=== PATIENT | female | born 1985 | race Caucasian/White ===

== ENCOUNTER 2019-03-27 19:05 | Emergency (ER) | payer SELFPAY ==
[2019-03-27 19:29] VITALS: TEMP 98; BMI 30.6
--- NOTE | 2019-03-27 19:58 | PDOC ---
History of Present Illness - General Chief Complaint: Nausea/Vomiting Stated Complaint: NAUSEA/VOMITING Time Seen by Provider: 03/27/19 19:49 - History of Present Illness Initial Comments: 03/27/19 19:55 33 YEAR OLD FEMALE C/O NAUSEA AND VOMITING SINCE 3 PM C/O ruq PAIN RADIATING TO THE BACK. patient started on cipro for cystitis today. patient reports feeling weak and dizziness LMP: 03/09/2019 pmhx: S/P h-pYLORI TREATMENT 2 MONTHS AGO 03/27/19 20:02 03/27/19 20:04 Past History - Past Medical History Allergies/Adverse Reactions: Allergies Allergy/AdvReac Type Severity Reaction Status Date / Time No Known Allergies Allergy Verified 03/27/19 19:24 Home Medications: Ambulatory Orders Omeprazole [Prilosec (RX)] 40 mg PO DAILY #30 capsule 07/30/14 Sucralfate [Carafate -] 1 gm PO TID PRN #21 tablet 07/30/14 COPD: Yes GI Disorders: Yes (gastritis) - Suicide/Smoking/Psychosocial Hx Smoking History: Never smoked Have you smoked in the past 12 months: No Hx Alcohol Use: No Drug/Substance Use Hx: No Substance Use Type: None Review of Systems - Review of Systems Able to Perform ROS?: Yes Is the patient limited Czech proficient: No Constitutional: No: Symptoms Reported, See HPI, Chills, Diaphoresis, Fever, Loss of Appetite, Malaise, Night Sweats, Weakness, Weight Stable, Unintentional Wgt. Loss, Unexplained wgt Loss, Other ABD/GI: Yes: Nausea, Vomiting, Abdominal cramping Musculoskeletal: Yes: Back Pain Integumentary: No: Symptoms Reported, See HPI, Bruising, Change in Color, Change in Hair/Nails, Dryness, Erythema, Flushing, Lesions, Lumps, Pallor, Pruritus, Rash, Sweating, Other Neurological: No: Symptoms reported, See HPI, Headache, Numbness, Paresthesia, Pre-Existing Deficit, Seizure, Tingling, Tremors, Weakness, Unsteady Gait, Ataxia, Dizziness, Other *Physical Exam - Vital Signs Last Vital Signs Temp Pulse Resp BP Pulse Ox 98.0 F 90 16 126/76 97 03/27/19 19:24 03/27/19 19:24 03/27/19 19:24 03/27/19 19:24 03/27/19 19:24 - Physical Exam General Appearance: Yes: Appropriately Dressed Cardiovascular: positive: Regular Rhythm, Regular Rate Gastrointestinal/Abdominal: positive: Normal Bowel Sounds, Tender (RUQ) Musculoskeletal: positive: CVA Tenderness (R) Extremity: positive: Normal Capillary Refill, Normal Inspection, Normal Range of Motion Integumentary: positive: Normal Color, Dry, Warm Neurologic: positive: Fully Oriented, Alert ED Treatment Course - LABORATORY CBC & Chemistry Diagram: 03/27/19 20:15 03/27/19 20:15 Progress Note - Progress Note Progress Note: A: cholelithiaisis P: Abdominal U/S labs IVF antiemetics Medical Decision Making - Medical Decision Making 03/27/19 21:21 Abdominal US: The liver has a normal size, shape and echotexture, without sonographically detected focal abnormality. There is no intrahepatic blue ductal dilatation. There is normal antegrade portal venous flow. There are multiple gallstones within the gallbladder. The gallbladder is otherwise within normal limits. The common bile duct measures 0.4 cm in diameter. There is no evidence of ascites. The right kidney measures 11.2 x 6.1 x 6.0 cm in diameter and has an unremarkable sonographic appearance, without sonographically detected focal abnormality. There is no right-sided hydronephrosis or renal calculi. *DC/Admit/Observation/Transfer Diagnosis at time of Disposition: Right upper quadrant pain Cholelithiasis Qualifiers: Cholelithiasis location: gallbladder Cholecystitis presence: without cholecystitis Biliary obstruction: without biliary obstruction Qualified Code(s) : K80.20 - Calculus of gallbladder without cholecystitis without obstruction - Discharge Dispostion Disposition: HOME - Referrals Referrals: Ayah Mahajan FNP [Primary Care Provider] - - Patient Instructions Printed Discharge Instructions: Gallstones Additional Instructions: Drink plenty of fluids Avoid fatty foods. Follow-up with a bill poster installer as soon as possible. You may continue Cipro as prescribed by your doctor for your urinary tract infection. Return to the emergency room if you develop fever, worsening nausea vomiting, severe abdominal pain or any worsening symptoms. - Post Discharge Activity Forms/Work/School Notes: Back to Work
[2019-03-27] MEDS ORDERED: ONDANSETRON 4 MG/2 ML VIAL IVPUSH ONE (20:03)
[2019-03-27] MEDS ORDERED: SODIUM CHLORIDE 1,000 ML IV STA (20:03)
[2019-03-27] MEDS ORDERED: ACETAMINOPHEN 1000 MG/100 ML VIAL (NON FORMULARY) IVPB ONE (20:04)
[2019-03-27 20:18] LABS: BASO % 0.3 % (0-2.0); HEMATOCRIT 41.1 % (32.4-45.2); HEMOGLOBIN 13.4 GM/dL (10.7-15.3); LYMPH % 9.3 % (8-40); MCH 28.6 pg (25.7-33.7); MCHC 32.6 g/dl (32.0-36.0); MEAN CELL VOLUME 87.9 fl (80-96); MEAN PLT VOLUME 7.5 fl (7.5-11.1); MONO % 3.9 % (3.8-10.2); NEUT % 86.5 % (42.8-82.8); PLATELET COUNT 291 K/MM3 (134-434); RBC 4.67 M/mm3 (3.60-5.2); RDW 13.8 % (11.6-15.6); WHITE BLOOD COUNT 15.3 K/mm3 (4.0-10.0)
[2019-03-27 20:36] LABS: HCG,QUALITATIVE URINE Negative; PH,URINE 6.5 (5.0-8.0); URINE APPEARANCE CLOUDY; URINE BACTERIA 398.3 /hpf (NEGATIVE); URINE BILIRUBIN NEGATIVE (NEGATIVE); URINE CASTS 3 /lpf (0-8); URINE COLOR YELLOW; URINE GLUCOSE (UA) NEGATIVE (NEGATIVE); URINE KETONE NEGATIVE (NEGATIVE); URINE LEUK ESTERASE TRACE (NEGATIVE); URINE NITRITE NEGATIVE (NEGATIVE); URINE PROTEIN NEGATIVE (NEGATIVE); URINE RBC 4 /hpf (0-4); URINE UROBILINOGEN 0.2 mg/dL (0.2-1.0); URINE WBC 9 /hpf (0-5)
[2019-03-27] MEDS ORDERED: ONDANSETRON 4 MG/2 ML VIAL ONE (20:40)
[2019-03-27] MEDS ORDERED: ACETAMINOPHEN INJECTION 100 ML IVPB ONE (20:40)
[2019-03-27 20:54] LABS: ALBUMIN 3.9 g/dl (3.4-5.0); BILIRUBIN,TOTAL 0.4 mg/dL (0.2-1); CREATININE 1.5 mg/dL (0.55-1.3); POTASSIUM 4.2 mmol/L (3.5-5.1); TOT PROT 7.3 g/dl (6.4-8.2)
[2019-03-27 21:55] VITALS: BP 134/78; PULSE 84
== END 2019-03-27 22:01 | disposition home or self-care (01) ==
LOC: JER 19:05
PROC: 3E0337Z Introduction of Electrolytic and Water Balance Substance into Peripheral Vein, Percutaneous Approach (ICD-10-PCS; principal; 2019-03-27)
PROC: 3E033NZ Introduction of Analgesics, Hypnotics, Sedatives into Peripheral Vein, Percutaneous Approach (ICD-10-PCS; 2019-03-27)
PROC: 3E033GC Introduction of Other Therapeutic Substance into Peripheral Vein, Percutaneous Approach (ICD-10-PCS; 2019-03-27)
DX: K80.20 Calculus of gallbladder without cholecystitis without obstruction (principal)
CPT/HCPCS: 36415; 76705-TC; 76775-TC; 80053; 81003; 83690; 84703; 85025; 87086; 99282-25; J0131; J7030